=== PATIENT | female | born 1970 | race Caucasian/White ===

== ENCOUNTER 2024-03-11 11:22 | Emergency (ER) | payer OTHER ==
[~2024-03-11] VITALS: Ht 157.5 cm; Wt 70.3 kg
[2024-03-11 11:50] VITALS: BP 101/79; PULSE 113; RESP 16; TEMP 97.9
[2024-03-11] MEDS: NACL 0.9% 1,000 ML IV ONE (13:32)
[2024-03-11] MEDS: KETOROLAC 30 MG/ML VIAL IVP ONE (13:35)
[2024-03-11] MEDS: diphenhydrAMINE 50 MG/ML VIAL IVP ONE (13:40)
[2024-03-11] MEDS: PROCHLORPERAZINE 10 MG/2 ML VIAL IVP ONE (13:42)
[2024-03-11 13:44] LABS: BASOPHILS % (AUTO) 0.1 % (0.0-2.0); HEMATOCRIT 39.5 % (36-48); LYMPHOCYTES # (AUTO) 0.6 K/uL (2.5-16.5); MEAN CORPUSCULAR HEMOGLOBIN 31 pg (27-31); MONOCYTES # (AUTO) 0.7 K/uL (0.8-1.0); MONOCYTES % (AUTO) 7.5 % (1.7-9.3); NEUTROPHILS # (AUTO) 7.9 K/uL (1.8-7.7); WHITE BLOOD COUNT (AUTO) 9.2 K/uL (4.8-10.8)
[2024-03-11 13:58] LABS: LYMPHOCYTES % (AUTO) 6.6 % (20.5-51.1); MEAN CORPUSCULAR HGB CONC 35 g/dL (33-37); MEAN CORPUSCULAR VOLUME 88.5 fL (80-94); NEUTROPHILS % (AUTO) 85.8 % (42.2-75.2); PLATELET COUNT (AUTO) 169 K/uL (140-450); RED BLOOD CELL COUNT(AUTO) 4.46 MIL/uL (4.20-5.40); RED CELL DISTRIBUTION WIDTH 13.6 % (11.6-13.7)
[2024-03-11 14:05] LABS: ALBUMIN 3.3 g/dL (3.4-5.0); ANION GAP 13.2 (8-16); CARBON DIOXIDE 25.2 mmol/L (21-32); CREATININE 0.8 mg/dL (0.6-1.3); POTASSIUM 3.4 mmol/L (3.5-5.1); TOTAL BILIRUBIN 2.1 mg/dL (0.0-1.0); TOTAL PROTEIN, SERUM 7.4 g/dL (6.4-8.2)
[2024-03-11] MEDS ORDERED: ONDA-188 SL (15:06)
[2024-03-11] MEDS ORDERED: IBUP-2213 PO (15:06)
[2024-03-11 15:53] VITALS: BP 108/76; PULSE 79; RESP 18; TEMP 98.4; O2SAT 98
== END 2024-03-11 15:50 | disposition home or self-care (01) ==
LOC: MED 11:22
DX: R42 Dizziness and giddiness (principal); R11.0 Nausea; R51.9 Headache, unspecified; Z88.1 Allergy status to other antibiotic agents
CPT/HCPCS: 36415; 80053; 85025; 93005; 96361; 96374; 96375; 99284; J0780; J1200; J1885; J7030

== ENCOUNTER 2024-03-15 11:25 | Emergency (ER) | payer OTHER ==
[~2024-03-15] VITALS: Ht 157.5 cm; Wt 70.3 kg
[~2024-03-15 11:25] MED LIST: IBUP-2213 PO; ONDA-188 SL
[2024-03-15 11:31] VITALS: BP 116/83; PULSE 86; RESP 18; TEMP 99.5; O2SAT 98
[2024-03-15] MEDS: KETOROLAC 30 MG/ML VIAL IM ONE (12:17)
[2024-03-15 12:34] LABS: FLU A ANTIGEN negative (NEGATIVE); FLU B ANTIGEN negative (NEGATIVE)
[2024-03-15] MEDS: HYDROcodone/APAP 5/325 MG 1 TAB TAB PO ONE (13:25)
[2024-03-15] MEDS ORDERED: cefTRIAXone 1,000 MG VIAL ONE (13:30)
[2024-03-15] MEDS ORDERED: AZIT250T4 PO (13:37)
[2024-03-15] MEDS ORDERED: AMOX-1230 PO (13:37)
[2024-03-15 14:03] VITALS: TEMP 98.1
[2024-03-15] MEDS ORDERED: AZITHROMYCIN 500 MG INJ VIAL IV ONE (14:04)
[2024-03-15] MEDS: AZITHROMYCIN 500 MG in DEXTROSE 5% 250 ML IV ONE (14:07)
[2024-03-15 14:22] LABS: BASOPHILS % (AUTO) 0.3 % (0.0-2.0); EOSINOPHILS % (AUTO) 0.2 % (0.0-4.0); HEMOGLOBIN 11.9 g/dL (12.0-16.0); LYMPHOCYTES # (AUTO) 0.7 K/uL (2.5-16.5); LYMPHOCYTES % (AUTO) 8.3 % (20.5-51.1); MEAN CORPUSCULAR HEMOGLOBIN 31 pg (27-31); MEAN CORPUSCULAR HGB CONC 35 g/dL (33-37); MEAN CORPUSCULAR VOLUME 88.3 fL (80-94); MONOCYTES # (AUTO) 0.5 K/uL (0.8-1.0); MONOCYTES % (AUTO) 5.8 % (1.7-9.3); NEUTROPHILS # (AUTO) 7.4 K/uL (1.8-7.7); NEUTROPHILS % (AUTO) 85.4 % (42.2-75.2); PLATELET COUNT (AUTO) 189 K/uL (140-450); RED BLOOD CELL COUNT(AUTO) 3.85 MIL/uL (4.20-5.40); RED CELL DISTRIBUTION WIDTH 13.4 % (11.6-13.7)
[2024-03-15 14:27] LABS: WHITE BLOOD COUNT (AUTO) 8.7 K/uL (4.8-10.8)
[2024-03-15 14:42] LABS: ANION GAP 13.7 (8-16); CALCIUM 8.4 mg/dL (8.5-10.1); CARBON DIOXIDE 23.3 mmol/L (21-32); CREATININE 0.6 mg/dL (0.6-1.3)
[2024-03-15 14:51] LABS: LACTIC ACID 0.7 mmol/L (0.4-2.0)
[2024-03-15] MEDS: POTASSIUM CHLORIDE 10 MEQ TABER PO ONE (15:37)
[2024-03-15 15:38] VITALS: BP 114/78; PULSE 71; RESP 14; O2SAT 97
== END 2024-03-15 15:38 | disposition home or self-care (01) ==
LOC: MED 11:25
DX: J18.9 Pneumonia, unspecified organism (principal); Z20.822 Contact with and (suspected) exposure to COVID-19; R51.9 Headache, unspecified; Z79.899 Other long term (current) drug therapy
CPT/HCPCS: 36415; 70450; 71045; 80048; 81025; 83605; 85025; 87040; 87426; 87804; 96365; 96368; 96372; 99285; J0456; J0696; J1885; Q0092